=== PATIENT | male | born 1960 | race Caucasian/White ===

== ENCOUNTER 2020-02-12 07:50 | Day surgery (SDC) | payer BC, SELFPAY ==
[2020-02-12 08:05] VITALS: BP 130/84; PULSE 62; RESP 18; TEMP 36.6; O2SAT 96
[2020-02-12] MEDS: sodium chloride 0.9% 1,000 ML 30 ML IV (08:19)
--- NOTE | 2020-02-12 08:26 | ANES.PREANE2 ---
Pre-Anesthetic Assessment Pre-Anesthetic Assessment: Height/Weight: Height 1.88 m Weight 102.058 kg Temp Pulse Resp BP Pulse Ox 97.8 F 62 18 130/84 96 02/12/20 08:05 02/12/20 08:05 02/12/20 08:05 02/12/20 08:05 02/12/20 08:05 Preop Diagnosis: screening Proposed Procedure: Operation Date: 02/12/20 09:35 Proposed Procedures p Colonoscopy 54271 R19.4(Not Applicable) - Maicol Bloom MD Familial anesthetic complications: None Was Beta Boy taken within 24 hours: N/A Last intake: Intake Last Liquid Date 02/11/20 Last Liquid Time 21:00 Last Solid Date 02/10/20 Last Solid Time 19:00 Social: Social History: No alcohol and No tobacco Exam: Pre-Anes Outpt Exam: alert, oriented x 3, clear to auscultation bilaterally and regular rate & rhythm Airway: Cervical ROM: WNL Additional comments: poor dentition -missing broken teeth Pulmonary: Pulmonary: None reported CV/HEM: CV/HEM: None reported : : None reported Hepatic: Hepatic: None reported GI: GI: None reported Metabolic: Metabolic: None reported Musc/skel: Musc/skel: None reported Neuropsych: Neuropsych: None reported Anesthetic Plan: ASA status: 1 Anesthesia: MAC Risk of > 500 ml blood loss (7ml/kg in children): No Meds/Allergies Current Medications: Current Medications Generic Name Dose Route Start Last Admin Trade Name Freq PRN Reason Stop Dose Admin Sodium Chloride 1,000 mls @ 30 ml s/hr 02/12/20 08:00 02/12/20 08:19 Sodium Chloride 0.9% IV 30 mls/hr .Q24H RUKHSANA Administration Data Anesthesia Cardiac Studies: No Data to Display
--- NOTE | 2020-02-12 09:17 | PM.OPSURHP ---
Providers/Chief Complaint Chief Complaint: Change in bowel habit History of Present Illness Maik Gomez is a 59 year old male whose brother has been diagnosed with colon cancer. Loss. His last colonoscopy 10 years ago was normal.he had polyps prior to that on a previous colonoscopy. Review of Systems General: Reports: 10 or more systems reviewed and unremarkable except in HPI and below Medications/Allergies Home Medications Medication Instructions Recorded Confirmed Last Taken Type No Known Home Medications 02/08/20 02/08/20 Unknown History Allergies Allergy/AdvReac Type Severity Reaction Status Date / Time No Known Allergies Allergy Unverified 10/24/19 10:15 PFSH PFSH: Medical History Amputation of arm below elbow, left Surgical History History of appendectomy Vital Signs Vitals Signs: Last Vital Signs Temp 97.8 F 02/12/20 08:05 Pulse 62 02/12/20 08:05 Resp 18 02/12/20 08:05 BP 130/84 02/12/20 08:05 Pulse Ox 96 02/12/20 08:05 Physical Exam Narrative: EXAM NARRATIVE: HEENT: Normocephalic Eye: Sclera /conjunctiva normal Abdomen: Soft to palpation Neurological: Oriented to place person and time Skin: Intact, no lesions appreciated on gross exam A&P Assessment and plan (1) Encounter for colonoscopy in patient with family history of colon cancer: The patient is scheduled for colonoscopy under MAC. The procedure risks and benefits, including infection, bleeding and bowel injury, has been explained to the patient, who has consented to the procedure. Information about the prep has been provided to the patient. Status: Acute Coding Level of Care Code Acute [employer] for [employer]g Fwd Diagnoses Encounter for colonoscopy in patient with family history of colon cancer Z12.11; Z80.0
[2020-02-12 10:48] VITALS: BP 102/68; PULSE 63; RESP 18; TEMP 36.6; O2SAT 93
[2020-02-12 11:20] VITALS: BP 135/94; PULSE 61; RESP 18; O2SAT 99
== END 2020-02-12 11:30 | disposition home or self-care (01) ==
PROVIDERS: Visit Provider Surgery
PROC: 0DJD8ZZ Inspection of Lower Intestinal Tract, Via Natural or Artificial Opening Endoscopic (ICD-10-PCS; CPT 45378; principal; 2020-02-12 09:30)
DX: Z12.11 Encounter for screening for malignant neoplasm of colon (principal); Z80.0 Family history of malignant neoplasm of digestive organs; D12.8 Benign neoplasm of rectum
CPT/HCPCS: 12345; 45378; J2704; J7030

== ENCOUNTER 2021-01-08 08:11 | Outpatient (CLI) | payer OTHER, SELFPAY ==
--- NOTE | 2021-01-08 08:30 | XR_ITS ---
WS: [id number] KUB, AP view, 01/08/2021 Clinical Data: URETERAL STONE Comparison: KUB, 08/30/2019. Findings: No abnormal intraabdominal masses or calcifications are seen. There is no dilatated small bowel or ev idence of obstruction. There are clips in the right upper quadrant from a cholecystectomy. Air and fecal material in the col on obscure detail over both kidneys. XR/XR KUB [id number] Impression: Negative KUB.
== END 2021-01-08 08:12 | disposition home or self-care (01) ==
PROVIDERS: PCP Urology; Visit Provider Urology
DX: N20.1 Calculus of ureter (principal)
CPT/HCPCS: 74018; 81003